=== PATIENT | male | born 1960 | race Caucasian/White ===

== ENCOUNTER 2019-05-01 20:40 | Emergency (ER) | payer OTHER ==
[~2019-05-01] VITALS: Ht 170.2 cm; Wt 83.9 kg
[2019-05-01 20:51] VITALS: BP_SYST 123
--- NOTE | 2019-05-01 21:08 | NUR ---
Patient to ER bed 05 to gown for evaluation. Side rails up. Report given to TOR GUY
--- NOTE | 2019-05-01 21:16 | NUR ---
Pt BIB EMS from home with c/o allergic reaction. Pt A&Ox4. Per EMS, 0.5 mg epinephrine given en route to hospital. Pt states approximately 2 hours ago, he was eating dinner with and noticed a sesame flavor. Pt states 15 minutes later, he began to feel his throat swell and his eyes get swollen. Pt states his gave him 2 benadryls with no improvement. 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 Pt states difficulty with swallowing. Upon arrival, pt on 2 L nasal cannula. Pt lungs bilaterally clear with no use of accessory muscles. Will continue to monitor.
--- NOTE | 2019-05-01 21:16 | NUR ---
Pt arrived to ER with 20 gauge IV in left forearm. IV flushed.
--- NOTE | 2019-05-01 21:33 | NUR ---
ER Dr. Cuevas at bedside examining patient.
[2019-05-01] MEDS ORDERED: NACL 0.9% 1,000 ML IV ONE ×2 (21:36→23:13)
[2019-05-01] MEDS ORDERED: methylPREDNISolone SOD SUCC/PF 62.5 MG/ML VIAL IVP ONE (21:45)
[2019-05-01] MEDS ORDERED: FAMOTIDINE PF 20 MG/2 ML VIAL IVP ONE (21:45)
[2019-05-01] MEDS ORDERED: DIPHENHYDRAMINE INJ 50 MG/ML VIAL IVP ONE (21:45)
--- NOTE | 2019-05-01 21:56 | NUR ---
Pt medicated per MD orders. Pt tolerated well. Will continue to monitor.
--- NOTE | 2019-05-01 23:00 | NUR ---
DR. BROOKS AT BEDSIDE RE-EXAMINING PATIENT
[2019-05-01 23:20] VITALS: BP_SYST 130
--- NOTE | 2019-05-01 23:20 | NUR ---
Patient given written and verbal discharge instructions and verbalizes understanding. ER MD Cuevas discussed with patient the results and treatment provided. Patient in stable condition. ID arm band removed. IV catheter removed intact and dressing applied, no active bleeding. Rx of prednisone given. Patient educated on pain management and to follow up with PMD. Pain Scale 0/10. Opportunity for questions provided and answered. Medication side effect fact sheet provided.
== END 2019-05-01 23:20 | disposition home or self-care (01) ==
LOC: SED 20:40
DX: T78.05XA Anaphylactic reaction due to tree nuts and seeds, initial encounter (principal); E78.00 Pure hypercholesterolemia, unspecified; I10 Essential (primary) hypertension; Z86.73 Personal history of transient ischemic attack (TIA), and cerebral infarction without residual deficits; X58.XXXA Exposure to other specified factors, initial encounter
CPT/HCPCS: 96374; 96375; 99284; J1200; J2930; J3490; J7030